=== PATIENT | male | born 1960 | race Caucasian/White ===

== ENCOUNTER 2017-03-15 11:14 | Outpatient (CLI) | payer OTHER ==
--- NOTE | 2017-03-15 13:43 | RAD ---
TWO VIEW RIGHT FOREARM: Clinical history: Injury three weeks prior, with pain. 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 No acute fracture is visualized. No radiopaque foreign body is seen. IMPRESSION: No acute osseous abnormality. POS: JOHN
== END 2017-03-15 11:15 | disposition home or self-care (01) ==
LOC: MADRAD 11:14
PROVIDERS: ATTEND Family Medicine
DX: M79.601 Pain in right arm (principal)